=== PATIENT | female | born 1945 | race Caucasian/White ===

== ENCOUNTER → 2016-11-01 | Outpatient (CLI) | payer MEDICARE, MEDICAID | END | disposition home or self-care (01) | LOC: PTH.S 10-05 15:00 | DX: K75.4 Autoimmune hepatitis (principal); K74.60 Unspecified cirrhosis of liver; Z79.899 Other long term (current) drug therapy ==

== ENCOUNTER 2016-11-20 01:47 | Emergency (ER) | payer MEDICARE, SELFPAY ==
--- NOTE | 2016-11-20 19:18 | ER ---
ADMIT: 11/20/2016 RM/LOC: ER [facility] MR#: [id number] [id number] [place] [address] Emergency Room Report SEX: F AGE: 71 : 1945 DATE: 11/20/2016 HISTORY OF PRESENT ILLNESS: The patient is a 71-year-old female with history of autoimmune hepatitis, came to the ER with chief complaint of right lower quadrant pain and right flank pain since today. The pain is sharp, continuous, increases with palpation of the area and is moderate to severe in severity. The patient denies any similar pain in the past. The patient also has nauseous without any vomiting, and the patient had temperature of 100.2 in the ER, with a pulse of 87 and blood pressure 110/68, was in moderate distress, head and neck exam was noncontributory, bilateral equal breath sounds without any crackles or wheezing, normal heart sounds. The patient had right lower quadrant and right flank mild tenderness without any rebound or guarding. Pain was controlled, the patient has white BC of 8.4 with creatinine of 1.2 and lactic of 1, UA was positive for [address] of abdomen pelvis was negative for appendicitis or other abnormalities or kidney stone. The patient received Zosyn in the ER IV, and was discharged to home with Keflex for treatment of UTI. The patient received a few Stuart for pain control as needed. The patient was advised to follow up with the primary care doctor as needed and was given the strict return precautions, the patient acknowledged she understood the plan and agreed with it. The patient was discharged to home. Nnamdi Ryan MD/ dima JOB #: [id number] CC: Nnamdi Ryan MD, Attending Physician Ronny Broderick MD, Family Physician
== END 2016-11-20 05:33 | disposition home or self-care (01) ==
LOC: ER 01:47
DX: N39.0 Urinary tract infection, site not specified (principal); Z79.899 Other long term (current) drug therapy